=== PATIENT | male | born 1965 | race Caucasian/White ===

== ENCOUNTER 2019-09-21 12:50 | Emergency (ER) | payer BC ==
[2019-09-21 12:56] VITALS: TEMP 98.5
[2019-09-21 13:45] LABS: Appearance,Urine Clear (Clear); Bilirubin,Urine Negative (Negative); Blood,Urine Negative (Negative); Color,Urine Light Yellow; Glucose,Urine (UA) Negative (Negative); Ketones,Urine Negative (Negative); Leukocyte Esterase,Urine Negative (Negative); Nitrite,Urine Negative (Negative); PH, Urine 6.5 (5.0-8.0); Protein,Urine Negative (Negative); Specific Gravity,Urine 1.007 (1.001-1.035); Urobilinogen,Urine <2.0 mg/dL (<2.0)
[2019-09-21 13:46] LABS: Basophils # (A) 0.1 k/uL (0-0.2); Basophils % (A) 1 %; Eosinophils # (A) 0.3 k/uL (0-0.7); Eosinophils % (A) 4 %; HCT 45.1 % (39.0-53.0); Lymphocytes % (A) 31 %; MCH 29.3 pg (25.0-35.0); MCHC 33.2 g/dL (31.0-37.0); Monocytes # (A) 0.8 k/uL (0-1.0); Monocytes % (A) 9 %; Neutrophils # (A) 5.3 k/uL (1.3-7.7); Neutrophils % (A) 54 %; Platelet Count 241 k/uL (150-450); RBC 5.12 m/uL (4.30-5.90); RDW 12.6 % (11.5-15.5); WBC 9.7 k/uL (3.8-10.6)
[2019-09-21 13:56] LABS: ALT 39 U/L (4-49); AST 37 U/L (17-59); African American GFR (CKD) >90 (>60 ml/min/1.73 sqM); Albumin 4.6 g/dL (3.5-5.0); Alkaline Phosphatase 82 U/L (38-126); Amylase 59 U/L (30-110); Anion Gap 12 mmol/L; Blood Urea Nitrogen 10 mg/dL (9-20); Calcium 9.2 mg/dL (8.4-10.2); Carbon Dioxide 25 mmol/L (22-30); Chloride 101 mmol/L (98-107); Glucose 103 mg/dL (74-99); Non-African American GFR(CKD) >90 (>60 ml/min/1.73 sqM); Potassium 4.1 mmol/L (3.5-5.1); Sodium 138 mmol/L (137-145); Total Bilirubin 1.1 mg/dL (0.2-1.3); Total Protein 8.2 g/dL (6.3-8.2)
[2019-09-21] MEDS ORDERED: SODIUM CHLORIDE 0.9% 1,000 ML IV ONE (14:43)
--- NOTE | 2019-09-21 14:44 | ED ---
Abdominal Pain HPI - General Source: patient Mode of arrival: ambulatory Limitations: no limitations <Magnolia Alaniz - Last Filed: 09/21/19 15:18> <Aliyah Doe - Last Filed: 09/25/19 00:31> - General Chief Complaint: Abdominal Pain Stated Complaint: Rt sided flank pain Time Seen by Provider: 09/21/19 13:01 - History of Present Illness Initial Comments: 53-year-old male presenting today for chief complaint of right lower abdominal pain. Patient states he's had right lower abdominal pain for the past 2 days. He states it was worse yesterday and has improved today. Patient states he is also experienced chills yesterday. Patient states he had a temperature of 100.5 however he states he has not noticed a fever today and has not taken any medications. Patient denies any diarrhea or vomiting he admits to nausea and decreased appetite. She denies any known history of diverticulosis. Patient denies chest pain, SOB, back pain. patient denies dysuria urgency frequency or hematuria. Remaining review systems negative upon arrival patient appears well nontoxic in no acute distress he is afebrile (Magnolia Alaniz) - Related Data Home Medications Medication Instructions Recorded Confirmed Lisinopril 20 mg PO DAILY 09/21/19 09/21/19 Previous Rx's Medication Instructions Recorded Amoxic-Pot Clav 875-125Mg 1 tab PO Q8H 10 Days #30 tab 09/21/19 [Augmentin 875-125] Allergies Allergy/AdvReac Type Severity Reaction Status Date / Time No Known Allergies Allergy Verified 09/21/19 12:56 Review of Systems ROS Other: All systems not noted in ROS Statement are negative. <Magnolia Alaniz - Last Filed: 09/21/19 15:18> ROS Other: All systems not noted in ROS Statement are negative. <Aliyah Doe - Last Filed: 09/25/19 00:31> ROS Statement: Those systems with pertinent positive or pertinent negative responses have been documented in the HPI. Past Medical History Past Medical History: Hypertension History of Any Multi-Drug Resistant Organisms: None Reported Past Surgical History: Orthopedic Surgery Past Psychological History: No Psychological Hx Reported Smoking Status: Never smoker Past Alcohol Use History: Daily Past Drug Use History: None Reported <Magnolia Alaniz - Last Filed: 09/21/19 15:18> General Exam Limitations: no limitations <Magnolia Alaniz - Last Filed: 09/21/19 15:18> - General Exam Comments Initial Comments: General: The patient is awake and alert, in no distress Eye: Pupils are equal, round and reactive to light, extra-ocular movements are intact. No nystagmus. There is normal conjunctiva bilaterally. No signs of icterus. Cardiovascular: There is a regular rate and rhythm. No murmur, rub or gallop is appreciated. Respiratory: Lungs are clear to auscultation, respirations are non-labored, breath sounds are equal. No wheezes, stridor, rales, or rhonchi. Gastrointestinal: Soft, non-distended, mild tenderness to palpation of the right lower abdomen, not specifically at McBurneys point more lateral. Remaining abdomen nontender and is without masses or organomegaly noted. There is no rebound or guarding present. Musculoskeletal: Normal ROM, no tenderness. Strength 5/5. Sensation intact. Radial pulses equal bilaterally 2+. Neurological: A&O x 3. CN II-XII intact grossly, There are no obvious motor or sensory deficits. Coordination appears grossly intact. Speech is normal. Skin: Skin is warm and dry and no rashes or lesions are noted. Psychiatric: Cooperative, appropriate mood & affect, normal judgment. (Magnolia Alaniz) Course Vital Signs 09/21/19 09/21/19 09/21/19 12:54 13:42 15:15 Temperature 98.5 F 98.5 F Pulse Rate 85 88 80 Respiratory 20 20 18 Rate Blood Pressure 171/89 139/89 139/85 O2 Sat by Pulse 97 99 100 Oximetry Medical Decision Making - Lab Data Result diagrams: 09/21/19 13:17 09/21/19 13:17 <Magnolia Alaniz - Last Filed: 09/21/19 15:18> - Lab Data Result diagrams: 09/21/19 13:17 09/21/19 13:17 <Aliyah Doe - Last Filed: 09/25/19 00:31> - Medical Decision Making 53-year-old male presents today for chief complaint of abdominal pain, fevers. Pain on exam mild. Labs WNL. Patient does not appear toxic afebrile. CT revealed a non-complicated diverticulitis. Patient age, appearance, labs and CT are reassuring for outpatient oral treatment with return for worsening symptoms. I discussed risks such as worsening infection risk of perforation and that any increase in pain or persisent fevers warrant immediate return for reevaluation. Patient verbalized understanding prefers outpatient treatment and discharge at this time. (Magnolia Alaniz) I was available for consultation in the emergency department. The history and physical exam were done by the midlevel provider. I was consulted for this patients care. I reviewed the case with the midlevel provider and based on their presentation of the patient, I agree with the assessment, medical decision making and plan of care as documented. Chart was dictated using [employer] dictation software. Attempts were made to correct any dictation errors however some typographical errors may persist. Patient was seen during a national state of emergency due to the Covid-19 pandemic. (Aliyah Doe) - Lab Data Lab Results 09/21/19 09/21/19 09/21/19 Range/Units 13:10 13:17 13:17 WBC 9.7 (3.8-10.6) k/uL RBC 5.12 (4.30-5.90) m/uL Hgb 15.0 (13.0-17.5) gm/dL Hct 45.1 (39.0-53.0) % MCV 88.0 (80.0-100.0) fL MCH 29.3 (25.0-35.0) pg MCHC 33.2 (31.0-37.0) g/dL RDW 12.6 (11.5-15.5) % Plt Count 241 (150-450) k/uL Neutrophils % 54 % Lymphocytes % 31 % Monocytes % 9 % Eosinophils % 4 % Basophils % 1 % Neutrophils # 5.3 (1.3-7.7) k/uL Lymphocytes # 3.0 (1.0-4.8) k/uL Monocytes # 0.8 (0-1.0) k/uL Eosinophils # 0.3 (0-0.7) k/uL Basophils # 0.1 (0-0.2) k/uL Sodium 138 (137-145) mmol/L Potassium 4.1 (3.5-5.1) mmol/L Chloride 101 (98-107) mmol/L Carbon Dioxide 25 (22-30) mmol/L Anion Gap 12 mmol/L BUN 10 (9-20) mg/dL Creatinine 0.73 (0.66-1.25) mg/dL Est GFR (CKD-EPI)AfAm >90 (>60 ml/min/1.73 sqM) Est GFR (CKD-EPI)NonAf >90 (>60 ml/min/1.73 sqM) Glucose 103 H (74-99) mg/dL Calcium 9.2 (8.4-10.2) mg/dL Total Bilirubin 1.1 (0.2-1.3) mg/dL AST 37 (17-59) U/L ALT 39 (4-49) U/L Alkaline Phosphatase 82 (38-126) U/L Total Protein 8.2 (6.3-8.2) g/dL Albumin 4.6 (3.5-5.0) g/dL Amylase 59 (30-110) U/L Lipase 203 (23-300) U/L Urine Color Light Yellow Urine Appearance Clear (Clear) Urine pH 6.5 (5.0-8.0) Ur Specific [place] 1.007 (1.001-1.035) Urine Protein Negative (Negative) Urine Glucose (UA) Negative (Negative) Urine Ketones Negative (Negative) Urine Blood Negative (Negative) Urine Nitrite Negative (Negative) Urine Bilirubin Negative (Negative) Urine Urobilinogen <2.0 (<2.0) mg/dL Ur Leukocyte Esterase Negative (Negative) Disposition Is patient prescribed a controlled substance at d/c from ED?: No Time of Disposition: 15:05 <Magnolia Alaniz - Last Filed: 09/21/19 15:18> <Aliyah Doe - Last Filed: 09/25/19 00:31> Clinical Impression: Diverticulitis, Abdominal pain Disposition: HOME SELF-CARE Condition: Good Instructions (If sedation given, give patient instructions): Diverticulitis (ED), Diverticulitis Diet (ED) Additional Instructions: Please use medication as discussed. Please follow-up with family doctor in the next 2 days , If pain worsening immediately return to the ER. Take medications 3x daily and follow diet as discussed. Please return to emergency room if the symptoms increase or worsen or for any other concerns. Prescriptions: Amoxic-Pot Clav 875-125Mg [Augmentin 875-125] 1 tab PO Q8H 10 Days #30 tab Referrals: Mauricio Kurtz MD [Primary Care Provider] - 1-2 days Zakiya Puri MD [STAFF PHYSICIAN] - 1-2 days
[2019-09-21] MEDS ORDERED: SODIUM CHLORIDE 0.9% 1,000 ML IV SCH (14:45)
--- NOTE | 2019-09-21 14:58 | CT ---
EXAMINATION TYPE: CT abdomen pelvis w con DATE OF EXAM: 09/21/2019 COMPARISON: None INDICATION: Possible appendicitis, right lower quadrant pain DLP: 2192.5 mGycm, Automated exposure control for dose reduction was used. CONTRAST: 100 ml mL of Isovue 300. Study performed without Oral Contrast TECHNIQUE: Axial images were obtained from above the diaphragm to the pubic rami in the axial plane a t 5 mm thick sections. Reconstructed images are reviewed on the computer in the coronal plane. FINDINGS: Limited CT sections are obtained the lung bases. The lung bases are clear. CT ABDOMEN: Liver: There is moderate fatty infiltration to the liver. No discrete masses are evident. Spleen: Normal Pancreas: Normal Adrenal glands: The adrenal glands are normal. Gallbladder: Normal Kidneys: No masses are evident. No hydronephrosis is present. No cysts are present. Delayed images were obtained through the kidneys, which remain unremarkable. Aorta: Vascular calcification is within the aorta. Inferior vena cava: Normal. CT PELVIS: There is some scattered diverticuli within the proximal ascending colon near the cecum. Inflammatory changes are adjacent. Acute diverticulitis is favored. The appendix appears nondilated and air-filled . Study is without oral contrast limiting bowel evaluation. Note is made of a few scattered diverticu li without additional inflammatory change adjacent within the descending colon and sigmoid colon. Appendix: Normal as visualized. Urinary bladder: Normal. Genitourinary structures: Prostate is normal Osseous structures: No suspicious lytic or sclerotic lesions. IMPRESSIONS: 1. Diverticuli within the proximal ascending colon just above the cecum with adjacent inflammatory c hanges compatible with noncomplicated acute diverticulitis. No abscess formation or free air is evide nt. 2. Air-filled appendix extending from the inferior cecum into the pelvis appears normal without adjac ent inflammatory change or dilatation to suggest acute appendicitis. 3. There are some additional areas of diverticulosis without acute diverticulitis within the descendi ng colon and proximal sigmoid colon.
[2019-09-21] MEDS ORDERED: AMOXIC-POT CLAV 875MG STARTER PACK 2 TAB BTL PO STA (15:04)
[2019-09-21 15:23] VITALS: BP 139/85; PULSE 80; RESP 18
== END 2019-09-21 15:15 | disposition home or self-care (01) ==
LOC: EC 12:50
DX: K57.32 Diverticulitis of large intestine without perforation or abscess without bleeding (principal); I10 Essential (primary) hypertension; Z79.899 Other long term (current) drug therapy
CPT/HCPCS: 36415; 80053; 82150; 83690; 85025; 81003; 74177; 99284; Q9967